=== PATIENT | male | born 1990 | race Caucasian/White ===

== ENCOUNTER → 2021-01-04 | Day surgery (SDC) | payer OTHER ==
[~2021-01-04] VITALS: Ht 180.3 cm; Wt 122.5 kg
== END | disposition home or self-care (01) ==
LOC: FAS 09:20
DX: K92.1 Melena (principal); R14.0 Abdominal distension (gaseous); R10.9 Unspecified abdominal pain; G89.29 Other chronic pain; R51.9 Headache, unspecified; K52.9 Noninfective gastroenteritis and colitis, unspecified; F17.210 Nicotine dependence, cigarettes, uncomplicated
CPT/HCPCS: J2250; J2704; J7120